=== PATIENT | female | born 1980 | race Caucasian/White ===

== ENCOUNTER 2016-11-02 11:07 | Emergency (ER) | payer SELFPAY ==
[~2016-11-02] VITALS: Ht 175.3 cm; Wt 120.0 kg
[~2016-11-02 11:07] MED LIST: KEFLEX; MELO7.5T12; ONDA4TAB7 PO; OXYC1TAB8 PO
[2016-11-02 11:10] VITALS: Ht 175.3 cm; Wt 120.0 kg
--- OUTSIDE RECORDS SUMMARY | 2016-11-02 11:11 | XMS REPORT ---
Author Author Carlene Lopez [facility] Address [address] [place] [address] Care Team Providers Care County Health Officer Name Role Phone Carlene Lopez Unavailable [phone] PROBLEMS Type Condition ICD9-CM Code WAW79-RK Code Onset Dates Condition Status SNOMED Code Assessment Other acute sinusitis J01.80 Jul, Active 21424178 Problem Anxiety state, unspecified 300.00 Active 936239831 Problem Major Depressive Disorder 311 Active 158539351 Problem Calculus of kidney 592.0 Active 34709481 Problem Pneumonia, organism unspecified 486 Active 091982838 Problem Depressive disorder, not elsewhere classified 311 Active 37823692 Problem Obesity, unspecified 278.00 Active 443246509 Problem Enlargement of lymph nodes 785.6 Active 25925036 Problem Unspecified myalgia and myositis 729.1 Active 189779499 Problem Unspecified disorder of the teeth and supporting structures 525.9 Active 569077764 Problem Abnormal weight gain 783.1 Active 614669351 Problem Unspecified vaginitis and vulvovaginitis 616.10 Active 446788885 Problem Pain in joint, hand 719.44 Active 710504744 Problem Unspecified vitamin D deficiency 268.9 Active 78448777 Problem Essential hypertension, benign 401.1 Active 0294890 Problem Essential (primary) hypertension I10 Active 27833101 Problem Other mixed anxiety disorders F41.3 Active Problem Abdominal pain, right lower quadrant 789.03 Active 172585795 Problem Health examination of defined subpopulation V70.5 Active 243994124 Problem Acute sinusitis, unspecified 461.9 Active 99021606 Problem 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 691409241 Problem Vitamin D deficiency, unspecified E55.9 Active 73934417 Problem Hypothyroidism, unspecified E03.9 Active 35465273 Problem Ulcer of esophagus without bleeding K22.10 Active 79991220 Problem Fatigue 780.79 Active 64173634 Problem Abdominal pain, unspecified site 789.00 Active 60517233 Problem Abdominal pain, left lower quadrant 789.04 Active 009283171 Problem Blood in stool 578.1 Active 566450436 Problem Acute bronchitis 466.0 Active 91664774 Problem Cough 786.2 Active 92246662 Problem 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
--- OUTSIDE RECORDS SUMMARY | 2016-11-02 11:11 | XMS REPORT ---
Author Author Elinor Collier Organization [employer] Address Unknown Phone Unavailable Care Team Providers Care Marketing Professor Name Role Phone Elinor Collier CP Unavailable Allergies No Known Allergies Problems Problem Type Condition ICD-9 Code Onset Dates Condition Status Problem Anxiety state, unspecified 300.00 Active Problem Major Depressive Disorder 311 Active Problem Unspecified disorder of the teeth and supporting structures 525.9 Active Problem Enlargement of lymph nodes 785.6 Active Problem Unspecified vaginitis and vulvovaginitis 616.10 Active Problem Pneumonia, organism unspecified 486 Active Problem Calculus of kidney 592.0 Active Problem Obesity, unspecified 278.00 Active Problem Depressive disorder, not elsewhere classified 311 Active Medications No Known Medications Vital Signs Date/Time: Aug 10, 2013 Weight 243 lbs Height 69 inches Blood Pressure Diastolic 103 mm Hg Blood Pressure Systolic 162 mm Hg Temperature 98.8 F Cardiac Monitoring Heart Rate 109 Beats per Minute Results No Known Results Summary Purpose [employer]Clinical[employer] Submission
--- OUTSIDE RECORDS SUMMARY | 2016-11-02 11:11 | XMS REPORT ---
Author Elinor Ochoa [facility] e[employer] Address Unknown Phone Unavailable Care Team Providers Care Training Generalist Name Role Phone Elinor Collier CP Unavailable Allergies, Adverse Reactions, Alerts Substance Reaction Event Type Sulfacet-R Info Not Available Drug Allergy Ciprofloxacin Info Not Available Drug Allergy Problems Problem Type Condition ICD-9 Code Onset Dates Condition Status Problem Enlargement of lymph nodes 785.6 Active Problem Unspecified vaginitis and vulvovaginitis 616.10 Active Problem Unspecified disorder of the teeth and supporting structures 525.9 Active Problem Fatigue 780.79 Active Problem Blood in stool 578.1 Active Problem Abdominal pain, unspecified site 789.00 Active Problem Health examination of defined subpopulation V70.5 Active Problem Acute sinusitis, unspecified 461.9 Active Problem Abdominal pain, left lower quadrant 789.04 Active Problem Abdominal pain, right lower quadrant 789.03 Active Assessment Fatigue 780.79 Active Assessment Abdominal pain, unspecified site 789.00 Active Assessment Blood in stool 578.1 Active Assessment Abdominal pain, left lower quadrant 789.04 Active Problem Calculus of kidney 592.0 Active Problem Pneumonia, organism unspecified 486 Active Problem Major Depressive Disorder 311 Active Problem Depressive disorder, not elsewhere classified 311 Active Problem Anxiety state, unspecified 300.00 Active Problem Obesity, unspecified 278.00 Active Medications Medication Code System Code Instructions Start Date End Date Status Dosage Percocet [facility] [address]-33 5-325 MG Orally every 6 hrs January 26, 2014 Active 1 tablet as needed [facility] [address]-00 875-125 MG Orally Twice a day January 25, 2014 February 08, 2014 Active 1 tablet Ibuprofen [facility] [address]-01 800 MG Orally every 8 hours Aug 25, 2013 Active 1 tablet as needed Aleve [facility] [address]-34 Active Unknown HydrOXYzine HCl [facility] [address]-23 25 MG Orally once or twice a day Active 1 tablet Cymbalta [facility] [address]-18 60 MG 30 MG Orally Once a day Jun 30, 2011 Active 1 capsule Procedures Procedure Coding System Code Date COMPLETE CBC W/AUTO DIFF WBC CPT-4 67492 January 26, 2014 URINALYSIS, AUTO, W/O SCOPE CPT-4 31283 January 26, 2014 COMPREHEN METABOLIC PANEL CPT-4 26728 January 26, 2014 FLYNN VAG, DNA, DIR PROBE CPT-4 15144 January 26, 2014 TRICHOMONAS VAGIN, DIR PROBE CPT-4 15443 January 26, 2014 Office Visit, Est Pt., Level 4 CPT-4 88025 January 26, 2014 N.GONORRHOEAE, DNA, DIR PROB CPT-4 37712 January 26, 2014 URINE TEST CPT-4 27165 January 26, 2014 ELLI, DNA, DIR PROBE CPT-4 75070 January 26, 2014 CHYLMD TRACH, DNA, DIR PROBE CPT-4 31679 January 26, 2014 Vital Signs Date/Time: January 26, 2014 Weight 246.6 lbs Height 69 in Blood Pressure Diastolic 85 mm Hg Blood Pressure Systolic 130 mm Hg Temperature 97.2 F Cardiac Monitoring Heart Rate 96 /min Results Urinalysis (UA) (GM) PRO(- ) Neg pH(- ) 6.5 BLO(- ) Small SG(- ) 1.025 KET(- ) Neg NIT(- ) Neg COLOR(- ) Yellow URO(- ) 0.2 CLARITY(- ) Clear GLU(- ) Neg MICHAEL(- ) Neg CRISTINO(- ) Neg Urine Test (GM) Summary Purpose eClinicalWorks Submission
--- OUTSIDE RECORDS SUMMARY | 2016-11-02 11:11 | XMS REPORT ---
Author Author Elinor Collier Organization [employer] Address Unknown Phone Unavailable Care Team Providers Care Space Officer Name Role Phone Elinor Collier CP Unavailable [...]
--- OUTSIDE RECORDS SUMMARY | 2016-11-02 11:11 | XMS REPORT ---
Author Author Elinor Collier Organization [employer] Address Unknown Phone Unavailable Care Team Providers Care Resident Engineer Name Role Phone Elinor Collier CP Unavailable Allergies No Known Allergies Problems Problem Type Condition ICD-9 Code Onset Dates Condition Status Problem Pneumonia, organism unspecified 486 Active Problem Obesity, unspecified 278.00 Active Problem Depressive disorder, not elsewhere classified 311 Active Problem Abdominal pain, right lower quadrant 789.03 Active Problem Health examination of defined subpopulation V70.5 Active Problem Abdominal pain, left lower quadrant 789.04 Active Problem Unspecified disorder of the teeth and supporting structures 525.9 Active Problem Enlargement of lymph nodes 785.6 Active Problem Acute sinusitis, unspecified 461.9 Active Problem Unspecified vaginitis and vulvovaginitis 616.10 Active Problem Major Depressive Disorder 311 Active Problem Anxiety state, unspecified 300.00 Active Problem Calculus of kidney 592.0 Active Medications No Known Medications Results No Known Results Summary Purpose [employer]ClinicalWorks Submission
--- OUTSIDE RECORDS SUMMARY | 2016-11-02 11:11 | XMS REPORT | Continuity of Care Document ---
Author Author [facility] Organization [facility] Address Unknown Phone Unavailable Care Team Providers Care Centerless Grinding Machine Adjuster Name Role Phone CARLO DONNELLY Primary Care Physician [phone] Insurance Providers Payer Name Policy Number Subscriber Name Relationship [employer] [id number] Yoanna Bautista 18 Self Problems Medical Problems Problem Onset Date Status Right flank pain Unknown Active Nausea Unknown Active Medications Medication Dose Route Sig Days/Qty Instructions Order Date Discontinued Date Status Oxycodone HCl/Acetaminophen 1-2 Tab PO Every 6 Hours PRN PAIN 20 Qty Active Ondansetron 4 Mg PO EVERY 6-8 HOURS 20 Qty 02/23/14 Active [Keflex] 02/23/14 Active Meloxicam 02/23/14 Active Social History Social History Problem Response Recorded Date/Time Smoking Status Never smoker 02/23/2014 7:16pm Hospital Discharge Instructions No hospital discharge instructions. Plan of Care No plan of care. Functional Status Query Response Date Recorded Physical Hygiene Self February 23, 2014 7:16pm Disabilities None February 23, 2014 7:16pm Devices Used None February 23, 2014 7:16pm Dressing Self February 23, 2014 7:16pm Ambulation Self February 23, 2014 7:16pm Diet Self February 23, 2014 7:16pm Mental Status Alert Oriented February 23, 2014 7:16pm Disabilities None February 23, 2014 7:16pm Devices Used None February 23, 2014 7:16pm Physical Hygiene Self February 23, 2014 7:16pm Dressing Self February 23, 2014 7:16pm Ambulation Self February 23, 2014 7:16pm Diet Self February 23, 2014 7:16pm Allergies, Adverse Reactions, Alerts Allergen Type Severity Reaction Status Last Updated Ciprofloxacin Allergy Unknown Active 02/23/14 SULFA Allergy Unknown Active 02/23/14 Immunizations No immunization records. Vital Signs Acute Vital Signs Vital Response Date/Time Temperature (Fahrenheit) 97.4 deg F (96.8 - 99.1) Temperature (Calculated Celsius) 36.82930 degrees C (36.0 - 37.3) Pulse Rate (adult) 78 bpm (60 - 100) Respiratory Rate 16 breaths/min (10 - 20) O2 Sat by Pulse Oximetry 99 % (90 - 100) Blood Pressure 128/75 mm Hg Height 5 ft 7 in Weight 198 lb Body Mass Index 31.0 kg/m^2 Results Test Source Date Result Interp. Ref. Range Comments Basophils # (Auto) February 23, 2014 7:21pm 0.1 T/MM3 N 0-0.2 Basophils (%) (Auto) February 23, 2014 7:21pm 1.0 % N 0-2 Eosinophils # (Auto) February 23, 2014 7:21pm 0.2 T/MM3 N 0-0.5 Eosinophils (%) (Auto) February 23, 2014 7:21pm 3.9 % N 0-4 Hematocrit February 23, 2014 7:21pm 39.4 % N 36-46 Hemoglobin February 23, 2014 7:21pm 13.1 GM/DL N 12-16 Lymphocytes # (Auto) February 23, 2014 7:21pm 1.5 T/MM3 N 1-4.8 Lymphocytes (%) (Auto) February 23, 2014 7:21pm 29.4 % N 23-45 Mean Corpuscular Hemoglobin February 23, 2014 7:21pm 29.5 UUG N 26-34 Mean Corpuscular Hemoglobin Concent February 23, 2014 7:21pm 33.2 GM/DL N 31 -37 Mean Corpuscular Volume February 23, 2014 7:21pm 88.7 UM3 N 80-100 Mean Platelet Volume February 23, 2014 7:21pm 10.8 UM3 N 9.4-12.4 Monocytes # (Auto) February 23, 2014 7:21pm 0.7 T/MM3 N 0-0.8 Monocytes (%) (Auto) February 23, 2014 7:21pm 13.5 % H 0-9.0 Neutrophils # (Auto) February 23, 2014 7:21pm 2.7 T/MM3 N 1.8-7.7 Neutrophils (%) (Auto) February 23, 2014 7:21pm 52.2 % N 33-66 Platelet Count February 23, 2014 7:21pm 296 T/MM3 N 130-400 RDW Standard Deviation February 23, 2014 7:21pm 41.4 FL N 36.9-50.2 Red Blood Count February 23, 2014 7:21pm 4.44 M/MM3 N 4.00-5.20 Urine Bilirubin February 23, 2014 7:40pm Negative - Has specimen been collected/obtained? Y Urine Blood February 23, 2014 7:40pm Negative - Has specimen been collected/obtained? Y Urine Collection Type February 23, 2014 7:40pm Voided-not cc-midstr - Has specimen been collected/obtained? Y Urine Color February 23, 2014 7:40pm Dk yellow - Has specimen been collected/obtained? Y Urine Glucose (UA) February 23, 2014 7:40pm Negative - Has specimen been collected/obtained? Y Urine Ketones February 23, 2014 7:40pm Trace H - Has specimen been collected/obtained? Y Urine Leukocyte Esterase February 23, 2014 7:40pm Negative - Has specimen been collected/obtained? Y Urine Nitrite February 23, 2014 7:40pm Negative - Has specimen been collected/obtained? Y Urine Protein February 23, 2014 7:40pm Negative - Has specimen been collected/obtained? Y Urine Specific [place] February 23, 2014 7:40pm >=1.030 H - Has specimen been collected/obtained? Y Urine Turbidity February 23, 2014 7:40pm Clear - Has specimen been collected/obtained? Y Urine Urobilinogen February 23, 2014 7:40pm 1.0 EU/DL - Has specimen been collected/obtained? Y Urine pH February 23, 2014 7:40pm 6.0 - Has specimen been collected/ obtained? Y White Blood Count February 23, 2014 7:21pm 5.1 T/MM3 N 4.5-11.0 Urinalysis Comment February 23, 2014 7:40pm Microscopic not ind. - Has specimen been collected/obtained? Y Immature Granulocyte # (Auto) February 23, 2014 7:21pm 0.00 T/MM3 N 0.00- 0.03 Immature Granulocyte % (Auto) February 23, 2014 7:21pm 0.0 % N 0.0-0.5 Procedures No known history of procedures. Encounters Encounter Location Date/Time Departed Emergency Room [facility] 02/23/14 5:44pm Recent Diagnosis
--- OUTSIDE RECORDS SUMMARY | 2016-11-02 11:12 | XMS REPORT ---
Author Elinor Ochoa Organization [employer] Address Unknown Phone Unavailable Care Team Providers Care Cosmetic Maker Name Role Phone Elinor Collier CP Unavailable [...] pain, right lower quadrant 789.03 Active Problem Calculus of kidney 592.0 Active Problem Pneumonia, organism unspecified 486 Active Problem Major Depressive Disorder 311 Active Problem Depressive disorder, not elsewhere classified 311 Active Problem Anxiety state, unspecified 300.00 Active Problem Obesity, unspecified 278.00 Active Medications No Known Medications Results No Known Results Summary Purpose eClinicalWorks Submission
--- OUTSIDE RECORDS SUMMARY | 2016-11-02 11:12 | XMS REPORT ---
Author Author Elinor Collier Organization [employer] Address Unknown Phone Unavailable Care Team Providers Care Patch Press Operator Name Role Phone Elinor Collier CP Unavailable [...]
--- OUTSIDE RECORDS SUMMARY | 2016-11-02 11:12 | XMS REPORT ---
Author Author Elinor Collier Organization [employer] Address Unknown Phone Unavailable Care Team Providers Care Brilliandeer Looper Name Role Phone Elinor Collier CP Unavailable Allergies, Adverse Reactions, Alerts Substance Reaction Event Type Sulfacet-R Info Not Available Drug Allergy Ciprofloxacin Info Not Available Drug Allergy Problems Problem Type Condition ICD-9 Code Onset Dates Condition Status Assessment Enlargement of lymph nodes 785.6 Active Problem Major Depressive Disorder 311 Active Assessment Unspecified disorder of the teeth and supporting structures 525.9 Active Assessment Obesity, unspecified 278.00 Active Assessment Major Depressive Disorder 311 Active Problem Enlargement of lymph nodes 785.6 Active Problem Obesity, unspecified 278.00 Active Problem Unspecified disorder of the teeth and supporting structures 525.9 Active Problem Calculus of kidney 592.0 Active Problem Anxiety state, unspecified 300.00 Active Problem Depressive disorder, not elsewhere classified 311 Active Problem Pneumonia, organism unspecified 486 Active Medications Medication Code System Code Instructions Start Date End Date Status Dosage Phentermine HCl [facility] [address]-57 37.5 MG Orally Once a day March 01, 2012 Mar 31, 2012 Active 1 tablet 1 hour prior to breakfast Ibuprofen [facility] [address]-97 800 MG Orally Three times a day May 16, 2013 Jun 15, 2013 Active 1 tablet as needed Amoxicillin [facility] [address]-49 500 MG Orally every 8 hrs May 16, 2013 May 26, 2013 Active [address] [facility] [address]-70 60 MG Orally Once a day Jun 30, 2011 Active 1 capsule Procedures Procedure Coding System Code Date Office Visit, Est Pt., Level 3 CPT-4 21660 May 16, 2013 Vital Signs Date/Time: May 16, 2013 Weight 259.6 lbs Height 69 inches Blood Pressure Diastolic 84 mm Hg Blood Pressure Systolic 121 mm Hg Temperature 98.7 F Results No Known Results Summary Purpose [employer]ClinicalWorks Submission
--- OUTSIDE RECORDS SUMMARY | 2016-11-02 11:12 | XMS REPORT ---
Author Author Naa Lopez Organization [employer] Address Unknown Phone Unavailable Care Team Providers Care Production Maintenance Mechanic Name Role Phone Naa Lopez CP Unavailable Allergies No Known Allergies Problems Problem Type Condition ICD-9 Code Onset Dates Condition Status Assessment Unspecified vitamin D deficiency 268.9 Active Assessment Other abnormal glucose 790.29 Active Problem Blood in stool 578.1 Active Problem Major Depressive Disorder 311 Active Problem Fatigue 780.79 Active Problem Anxiety state, unspecified 300.00 Active Problem Abdominal pain, unspecified site 789.00 Active Problem Other acne 706.1 Active Problem Congenital medullary sponge kidney 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.17 Active Problem Essential hypertension, benign 401.1 Active Problem Pain in joint, hand 719.44 Active Problem Depressive disorder, not elsewhere classified 311 Active Problem Pneumonia, organism unspecified 486 Active Problem Unspecified vitamin D deficiency 268.9 Active Problem Calculus of kidney 592.0 Active Problem Cough 786.2 Active Problem Acute bronchitis 466.0 Active Problem Abnormal weight gain 783.1 Active Problem Unspecified myalgia and myositis 729.1 Active Problem Unspecified disorder of the teeth and supporting structures 525.9 Active Problem Unspecified vaginitis and vulvovaginitis 616.10 Active Problem Obesity, unspecified 278.00 Active Problem Enlargement of lymph nodes 785.6 Active Problem Abdominal pain, right lower quadrant 789.03 Active Problem Abdominal pain, left lower quadrant 789.04 Active Problem Acute sinusitis, unspecified 461.9 Active Problem Health examination of defined subpopulation V70.5 Active Medications Medication Code System Code Instructions Start Date End Date Status Dosage Vitamin D (Ergocalciferol) [facility] [address]-31 [address]23 UNIT Orally once weekly January 29, 2015 Apr 29, 2015 1 capsule Results No Known Results Summary Purpose eClinicalWorks Submission
--- OUTSIDE RECORDS SUMMARY | 2016-11-02 11:12 | XMS REPORT ---
Author Elinor Ochoa [facility] eClinical[employer] Address Unknown Phone Unavailable Care Team Providers Care Big 6 Dealer Name Role Phone Elinor Collier CP Unavailable [...] Problem Unspecified vaginitis and vulvovaginitis 616.10 Active Assessment Abdominal pain, left lower quadrant 789.04 Active Problem Major Depressive Disorder 311 Active Problem Anxiety state, unspecified 300.00 Active Assessment Abdominal pain, right lower quadrant 789.03 Active Problem Calculus of kidney 592.0 Active Medications Medication Code System Code Instructions Start Date End Date Status Dosage [facility] [address]-91 875-125 MG Orally Twice a day January 25, 2014 February 08, 2014 Active 1 tablet Cymbalta [facility] [address]-74 60 MG 30 MG Orally Once a day Jun 30, 2011 Active 1 capsule [facility] [address]-09 25 MG Orally once or twice a day Active 1 tablet Aleve [facility] [address]-62 Active Unknown Ibuprofen [facility] [address]-38 800 MG Orally every 8 hours Aug 25, 2013 Active 1 tablet as needed Procedures Procedure Coding System Code Date Office Visit, Est Pt., Level 3 CPT-4 72643 January 25, 2014 Vital Signs Date/Time: January 25, 2014 Weight 247.0 lbs Height 69 in Blood Pressure Diastolic 88 mm Hg Blood Pressure Systolic 122 mm Hg Temperature 97.9 F Cardiac Monitoring Heart Rate 102 /min Results No Known Results Summary Purpose eClinicalWorks Submission
--- OUTSIDE RECORDS SUMMARY | 2016-11-02 11:12 | XMS REPORT ---
Author Author Elinor Collier Organization [employer] Address Unknown Phone Unavailable Care Team Providers Care Financial Sales Consultant Name Role Phone Elinor Collier CP Unavailable [...]
--- OUTSIDE RECORDS SUMMARY | 2016-11-02 11:12 | XMS REPORT ---
Author Author Elinor Collier Organization [employer] Address Unknown Phone Unavailable Care Team Providers Care Silhouette Artist Name Role Phone Elinor Collier CP Unavailable Allergies, Adverse Reactions, Alerts Substance Reaction Event Type Sulfacet-R Info Not Available Drug Allergy Ciprofloxacin Info Not Available Drug Allergy Problems Problem Type Condition ICD-9 Code Onset Dates Condition Status Assessment Unspecified disorder of the teeth and supporting structures 525.9 Active Problem Anxiety state, unspecified 300.00 Active [...] disorder, not elsewhere classified 311 Active Medications Medication Code System Code Instructions Start Date End Date Status Dosage HydrOXYzine HCl [facility] [address]-22 25 MG Orally once or twice a day Active 1 tablet Ibuprofen [facility] [address]-43 800 MG Orally Three times a day Aug 25, 2013 Active 1 tablet as needed Amoxicillin [facility] [address]-87 500 MG Orally every 8 hrs Aug 25, 2013 Sep 14, 2013 Active 1 tablet Cymbalta [facility] [address]-59 60 MG + 30 MG Orally Once a day Jun 30, 2011 Active 1 capsule Aleve [facility] [address]-58 Active Unknown Procedures Procedure Coding System Code Date Office Visit, Est Pt., Level 3 CPT-4 17657 Aug 25, 2013 Vital Signs Date/Time: Aug 25, 2013 Weight 242 lbs Height 69 inches Blood Pressure Diastolic 87 mm Hg Blood Pressure Systolic 131 mm Hg Temperature 98.4 F Cardiac Monitoring Heart Rate 108 Beats per Minute Results No Known Results Summary Purpose eClinicalWorks Submission
--- OUTSIDE RECORDS SUMMARY | 2016-11-02 11:12 | XMS REPORT ---
Author Author Carlene Lopez [facility] Address [address] [place] [address] Care Team Providers Care Pie Bottomer Name Role Phone Carlene Lopez Unavailable [phone] PROBLEMS Type Condition ICD9-CM Code SQO49-ND Code Onset Dates Condition Status SNOMED Code Assessment Encounter for general adult medical examination with abnormal findings Z00.01 Jul, Active 67642963 Assessment Encounter for screening for respiratory tuberculosis Z11.1 Jul, Active 802098054 Problem Anxiety state, unspecified 300.00 Active 050334458 Problem Major Depressive Disorder 311 Active 272182563 Problem Calculus of kidney 592.0 Active 83688451 Problem Pneumonia, organism unspecified 486 Active 356117531 Problem Depressive disorder, not elsewhere classified 311 Active 70125078 Problem Obesity, unspecified 278.00 Active 352451687 Problem Enlargement of lymph nodes 785.6 Active 16838593 Problem Unspecified myalgia and myositis 729.1 Active 128535829 Problem Unspecified disorder of the teeth and supporting structures 525.9 Active 125310146 Problem Abnormal weight gain 783.1 Active 782794808 Problem Unspecified vaginitis and vulvovaginitis 616.10 Active 187151209 Problem Pain in joint, hand 719.44 Active 826870358 Problem Unspecified vitamin D deficiency 268.9 Active 30954626 Problem Essential hypertension, benign 401.1 Active 3159380 Problem Essential (primary) hypertension I10 Active 42826042 Problem Other mixed anxiety disorders F41.3 Active Problem Abdominal pain, right lower quadrant 789.03 Active 100027959 Problem Health examination of defined subpopulation V70.5 Active 273569560 Problem Acute sinusitis, unspecified 461.9 Active 04075130 Problem 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 358016093 Problem Vitamin D deficiency, unspecified E55.9 Active 51419597 Problem Hypothyroidism, unspecified E03.9 Active 81689339 Problem Ulcer of esophagus without bleeding K22.10 Active 04665207 Assessment Acute nasopharyngitis [common cold] J00 Jul, Active 38559789 Problem Fatigue 780.79 Active 58095960 Assessment Essential (primary) hypertension I10 Jul, Active 47635325 Problem Abdominal pain, unspecified site 789.00 Active 99022777 Problem Abdominal pain, left lower quadrant 789.04 Active 724188166 Assessment Impaired fasting glucose R73.01 Jul, Active 218163625 Problem Blood in stool 578.1 Active 432626524 Problem Acute bronchitis 466.0 Active 29055053 Problem Cough 786.2 Active 41439302 Problem Congenital medullary sponge 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.17 Active 355629811 Problem Other acne 706.1 Active 88668800 ALLERGIES Substance Reaction Event Type Date Status Sulfacet-R Unknown Drug Allergy Jul, Active Ciprofloxacin Unknown Drug Allergy Jul, Active SOCIAL HISTORY No smoking Hx information available PLAN OF CARE VITAL SIGNS Height 69 in 2016-07-18 Weight 261.6 lbs 2016-07-18 BMI 38.63 kg/m2 2016-07-18 Heart Rate 92 /min 2016-07-18 Temperature 97.8 degrees Fahrenheit 2016-07-18 Blood pressure systolic 134 mm Hg 2016-07-18 Blood pressure diastolic 83 mm Hg 2016-07-18 MEDICATIONS Medication Instructions Dosage Frequency Start Date End Date Duration Status Levothyroxine Sodium 100 MCG Orally as directed 1/2 tab once daily x2 weeks then 1 tab daily thereafter Jul, 90 days Active Womens Daily Formula Active Atenolol 25 MG Orally Once a day 1 tablet 24h Jan, 90 days Active Cymbalta 30 MG Orally Once a day 3 capsule 24h Jun, Active RESULTS No Results PROCEDURES Procedure Date Ordered Related Diagnosis Body Site Office Visit, Est Pt., Level 3 Jul 18, 2016 TB INTRADERMAL TEST Jul 18, 2016 IMMUNIZATIONS Vaccine Route Administration Date Status Tuberculin ([place]) SC Subcutaneous Jul 18, 2016 Administered
--- OUTSIDE RECORDS SUMMARY | 2016-11-02 11:12 | XMS REPORT ---
Author Author Naa Lopez Organization [employer] Address Unknown Phone Unavailable Care Team Providers Care Teamsite Developer Name Role Phone Naa Lopez CP Unavailable Allergies No Known Allergies Problems Problem Type Condition Code Onset Dates Condition Status Problem Blood in stool 578.1 Active Problem [...] examination of defined subpopulation V70.5 Active Medications No Known Medications Results No Known Results Summary Purpose [employer] Submission
--- OUTSIDE RECORDS SUMMARY | 2016-11-02 11:12 | XMS REPORT ---
Author Author Elinor Collier Organization [employer] Address Unknown Phone Unavailable Care Team Providers Care Project Development Director Name Role Phone Elinor Collier CP Unavailable [...]
--- OUTSIDE RECORDS SUMMARY | 2016-11-02 11:12 | XMS REPORT ---
Author Author Naa Lopez [facility] [employer] Address Unknown Phone Unavailable Care Team Providers Care Soa Engineer Name Role Phone Naa Lopez CP Unavailable Allergies, Adverse Reactions, Alerts Substance Reaction Event Type Sulfacet-R Info Not Available Drug Allergy Ciprofloxacin Info Not Available Drug Allergy Problems Problem Type Condition ICD-9 Code Onset Dates Condition Status Assessment Unspecified myalgia and myositis 729.1 Active Assessment Abnormal weight gain 783.1 Active Assessment Pain in joint, hand 719.44 Active Assessment Anxiety state, unspecified 300.00 Active Problem Abdominal pain, left lower quadrant 789.04 Active Assessment Essential hypertension, benign 401.1 Active Problem Blood in stool 578.1 Active Problem Major Depressive Disorder 311 Active Problem Fatigue 780.79 Active Problem Congenital medullary sponge kidney 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.17 Active Problem Abdominal pain, unspecified site 789.00 Active Problem Pain in joint, hand 719.44 Active Problem Abnormal weight gain 783.1 Active Problem Pneumonia, organism unspecified 486 Active Problem Calculus of kidney 592.0 Active Problem Essential hypertension, benign 401.1 Active Problem Anxiety state, unspecified 300.00 Active Problem Acute bronchitis 466.0 Active Problem Other acne 706.1 Active Problem Unspecified myalgia and myositis 729.1 Active Problem Cough 786.2 Active Problem Enlargement of lymph nodes 785.6 Active Problem Unspecified disorder of the teeth and supporting structures 525.9 Active Problem Depressive disorder, not elsewhere classified 311 Active Problem Obesity, unspecified 278.00 Active Problem Health examination of defined subpopulation V70.5 Active Problem Abdominal pain, right lower quadrant 789.03 Active Problem Unspecified vaginitis and vulvovaginitis 616.10 Active Problem Acute sinusitis, unspecified 461.9 Active Medications Medication Code System Code Instructions Start Date End Date Status Dosage Cymbalta [facility] [address]-56 30 MG Orally Once a day Jun 30, 2011 3 capsule Atenolol [facility] [address]-30 25 MG Orally qhs January 17, 2015 1 tablet Procedures Procedure Coding System Code Date Office Visit, Est Pt., Level 3 CPT-4 68689 January 17, 2015 Vital Signs Date/Time: January 17, 2015 BMI 38.63 Index Weight 261.6 lbs Height 69 in Blood Pressure Diastolic 84 mm Hg Blood Pressure Systolic 134 mm Hg Temperature 97.3 F Cardiac Monitoring Heart Rate 83 /min Results No Known Results Summary Purpose [employer] Submission
--- OUTSIDE RECORDS SUMMARY | 2016-11-02 11:12 | XMS REPORT ---
Author Author Naa Lopez [facility] [employer] Address Unknown Phone Unavailable Care Team Providers Care Induction Heating Equipment Setter Name Role Phone Naa Lopez CP Unavailable Allergies, Adverse Reactions, Alerts Substance Reaction Event Type Sulfacet-R Info Not Available Drug Allergy Ciprofloxacin Info Not Available Drug Allergy Problems Problem Type Condition ICD-9 Code Onset Dates Condition Status Problem Health examination of defined subpopulation V70.5 Active Problem Abdominal pain, left lower quadrant 789.04 Active Problem Abdominal pain, right lower quadrant 789.03 Active Problem Acute bronchitis 466.0 Active Assessment Cough 786.2 Active Problem Other acne 706.1 Active Problem Cough 786.2 Active Problem Fatigue 780.79 Active Problem Blood in stool 578.1 Active Problem Congenital medullary sponge 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.17 Active Problem Abdominal pain, unspecified site 789.00 Active Problem Calculus of kidney 592.0 Active Problem Pneumonia, organism unspecified 486 Active Problem Major Depressive Disorder 311 Active Problem Anxiety state, unspecified 300.00 Active Problem Enlargement of lymph nodes 785.6 Active Problem Unspecified disorder of the teeth and supporting structures 525.9 Active Problem Depressive disorder, not elsewhere classified 311 Active Problem Unspecified vaginitis and vulvovaginitis 616.10 Active Problem Obesity, unspecified 278.00 Active Problem Acute sinusitis, unspecified 461.9 Active Medications Medication Code System Code Instructions Start Date End Date Status Dosage Azithromycin [facility] [address]-79 250 MG Orally Once a day Jul 05, 2014 Jul 10, 2014 Active 2 tablet on the first day, then 1 tablet daily for 4 days HydrOXYzine HCl [facility] [address]-26 25 MG Orally once or twice a day Active 1 tablet Ibuprofen [facility] [address]-67 800 MG Orally every 8 hours Aug 25, 2013 November 02, 2014 Active 1 tablet as needed Percocet [facility] [address]-35 5-325 MG Orally every 6 hrs January 26, 2014 Active 1 tablet as needed Aleve [facility] [address]-17 Active not defined Cymbalta [facility] [address]-95 60 MG 30 MG Orally Once a day Jun 30, 2011 Active 1 capsule Tretinoin [facility] [address]-19 0.1 % Externally Once a day Mar 23, 2014 Active 1 application to affected area in the evening to face Doxycycline Hyclate [facility] [address]-58 100 MG Orally Once a day Mar 23, 2014 October 19, 2014 Active 1 tablet Procedures Procedure Coding System Code Date Office Visit, Est Pt., Level 3 CPT-4 76120 Jul 05, 2014 Vital Signs Date/Time: Jul 05, 2014 BMI 36.62 Index Weight 248.0 lbs Height 69 in Blood Pressure Diastolic 78 mm Hg Blood Pressure Systolic 132 mm Hg Temperature 98.6 F Cardiac Monitoring Heart Rate 105 /min Results No Known Results Summary Purpose [employer] Submission
--- OUTSIDE RECORDS SUMMARY | 2016-11-02 11:12 | XMS REPORT ---
Author Author Elinor Collier [facility] [employer] Address Unknown Phone Unavailable Care Team Providers Care Telephone Answering Service Operator Name Role Phone Elinor Collier CP Unavailable Allergies No Known Allergies Problems Problem Type Condition ICD-9 Code Onset Dates Condition Status Problem Unspecified disorder of the teeth and supporting structures 525.9 Active Problem Acute sinusitis, unspecified 461.9 Active Problem Unspecified vaginitis and vulvovaginitis 616.10 Active Problem Abdominal pain, unspecified site 789.00 Active Problem Fatigue 780.79 Active Problem Congenital medullary sponge 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.17 Active Problem Abdominal pain, right lower quadrant 789.03 Active Problem Health examination of defined subpopulation V70.5 Active Problem Blood in stool 578.1 Active Problem Abdominal pain, left lower quadrant 789.04 Active Problem Major Depressive Disorder 311 Active Problem Pneumonia, organism unspecified 486 Active Problem Depressive disorder, not elsewhere classified 311 Active Problem Anxiety state, unspecified 300.00 Active Problem Obesity, unspecified 278.00 Active Problem Calculus of kidney 592.0 Active Problem Enlargement of lymph nodes 785.6 Active Medications No Known Medications Results No Known Results Summary Purpose [employer] Submission
--- OUTSIDE RECORDS SUMMARY | 2016-11-02 11:12 | XMS REPORT ---
Author Author Elinor Collier [facility] [employer] Address Unknown Phone Unavailable Care Team Providers Care Client Renewal Specialist Name Role Phone Elinor Collier CP Unavailable [...]
--- OUTSIDE RECORDS SUMMARY | 2016-11-02 11:13 | XMS REPORT ---
Author Elinor Ochoa Organization [employer] Address Unknown Phone Unavailable Care Team Providers Care Timber Appraiser Name Role Phone Elinor Collier CP Unavailable [...]
--- OUTSIDE RECORDS SUMMARY | 2016-11-02 11:13 | XMS REPORT | Continuity of Care Document ---
Author Author [facility] Organization [facility] Address Unknown Phone Unavailable Allergies Active Description Code Type Severity Reaction Onset Reported/Identified Relationship to Patient Clinical Status Yes Cipro Drug Allergy Urticaria (hives) 05/28/2011 Yes Sulfa (Sulfonamide Antibiotics Drug Allergy Urticaria ( hives) 05/28/2011 Yes ciprofloxacin HCl ciprofloxacin HCl Drug Allergy Unknown N/ A 04/30/2012 Yes No Known Food Allergies Food Allergy 06/03/2012 Yes Cipro - Oral Medication MED N/A N/A 06/03/2013 Yes Sulfa Antibiotics - CLASS Class MED N/A N/A 06/03/2013 Yes ciprofloxacin ciprofloxacin Drug Allergy Unknown HIVES 06/16/2015 Yes ciprofloxacin HCl ciprofloxacin HCl Drug Allergy Unknown HIVES 06/16/2015 Yes Sulfa (Sulfonamide Antibiotics) Sulfa (Sulfonamide Antibiotics) Drug Allergy Unknown HIVES Yes ciprofloxacin ciprofloxacin Drug Allergy Unknown HIVES 06/16/2015 Yes ciprofloxacin HCl ciprofloxacin HCl Drug Allergy Unknown HIVES 06/16/2015 Yes Sulfa (Sulfonamide Antibiotics) Sulfa (Sulfonamide Antibiotics) Drug Allergy Unknown HIVES Medications Medication Packaging Start Date Stop Date Route Dosage Sig ClonazePAM 0.5 MG Oral Tablet 03/03/2016 04/03/2016 ORAL 0.5MG Take one tablet AM and one tablet PM and 1/2 to 1 tablet QD PRN for panic ClonazePAM 0.5 MG Oral Tablet 04/16/2016 05/17/2016 ORAL 0.5MG TAKE 1 TABLET BY MOUTH EVERY MORNING TAKE 1 TABLET BY MOUTH EVERY EVENING AND 1/2 TO 1 TABLET EVERY DAY NEEDED FOR PANIC ClonazePAM 0.5 MG Oral Tablet 07/24/2016 08/01/2016 ORAL 0.5MG TAKE 1 TABLET TWICE DAILY NEEDED. DULoxetine HCl 30 MG Oral Capsule Delayed Release Particles 09/03/2016 10/04/2016 ORAL 30MG TAKE 1 CAPSULE DAILY IN THE MORNING. ClonazePAM 0.5 MG Oral Tablet 09/03/2016 10/04/2016 ORAL 0.5MG TAKE 1 TABLET BID PRN ClonazePAM 0.5 MG Oral Tablet UD 10/21/2016 11/21/2016 ORAL 0.5MG TAKE ONE TABLET BY MOUTH DAILY NEEDED Problems Date Dx Coded Attending Type Code Diagnosis Diagnosed By 04/30/2012 Adolph Goel MD Final 788.0 RENAL COLIC 04/30/2012 Adolph Goel MD Admitting 789.09 ABDOMINAL PAIN-SITE NEC 05/26/2012 Marita Brown MD Final 483.8 PNEUMONIA D/T ORG NEC 05/26/2012 Marita Brown MD 786.05 SHORTNESS OF BREATH 05/26/2012 Marita Brown MD Admitting 786.2 COUGH 05/29/2012 Colt Farias MD Final 486 PNEUMONIA ORGANISM NOS 05/29/2012 Colt Farias MD Admitting 786.2 COUGH 06/03/2012 Jarrett Vanegas DO Final 311 DEPRESSIVE DISORDER NEC 06/03/2012 Jarrett Vanegas DO Final 486 PNEUMONIA ORGANISM NOS 06/03/2012 Jarrett Vanegas DO Admitting 786.05 SHORTNESS OF BREATH 05/03/2015 F F31.81 Bipolar II disorder Jenni Gay 11/28/2015 F F33.1 Major depressive disorder, recurrent, moderate RadiantRochelle 11/28/2015 F F31.81 Bipolar II disorder Rochelle Jarvis 11/28/2015 F F41.0 Panic disorder [episodic paroxysmal anxiety] without agoraphobia Rochelle Jarvis 11/28/2015 F F31.81 Bipolar II disorder 11/28/2015 F F41.0 Panic disorder [episodic paroxysmal anxiety] without agoraphobia 11/28/2015 F F33.1 Major depressive disorder, recurrent, moderate 12/27/2015 F F33.1 Major depressive disorder, recurrent, moderate Rochelle Jarvis 12/27/2015 F F31.81 Bipolar II disorder Rochelle Jarvis 12/27/2015 F F41.0 Panic disorder [episodic paroxysmal anxiety] without agoraphobia Rochelle Jarvis 12/27/2015 F F31.81 Bipolar II disorder 12/27/2015 F F41.0 Panic disorder [episodic paroxysmal anxiety] without agoraphobia 12/27/2015 F F33.1 Major depressive disorder, recurrent, moderate 02/28/2016 F F31.81 Bipolar II disorder Chevalier, Sandra 02/28/2016 F F41.0 Panic disorder [episodic paroxysmal anxiety] without agoraphobia Chevalier, Sandra 02/28/2016 F F33.1 Major depressive disorder, recurrent, moderate Chevalier, Sandra 02/28/2016 F F31.81 Bipolar II disorder Chevalier, Sandra 02/28/2016 F F41.0 Panic disorder [episodic paroxysmal anxiety] without agoraphobia Chevalier, Sandra 02/28/2016 F F33.1 Major depressive disorder, recurrent, moderate Chevalier, Sandra 02/28/2016 F F33.1 Major depressive disorder, recurrent, moderate Deidra Jenni A 02/28/2016 F F41.0 Panic disorder [episodic paroxysmal anxiety] without agoraphobia Jenni Gay A 03/03/2016 F F33.1 Major depressive disorder, recurrent, moderate Guerra, Maria Del Rosario 03/03/2016 F F31.81 Bipolar II disorder Guerra, Maria Del Rosario 03/03/2016 F F41.0 Panic disorder [episodic paroxysmal anxiety] without agoraphobia Guerra, Maria Del Rosario 03/03/2016 F F31.81 Bipolar II disorder 03/03/2016 F F41.0 Panic disorder [episodic paroxysmal anxiety] without agoraphobia 03/03/2016 F F31.81 Bipolar II disorder Chevalier, Sandra 03/03/2016 F F41.0 Panic disorder [episodic paroxysmal anxiety] without agoraphobia Chevalier, Sandra 03/03/2016 F F33.1 Major depressive disorder, recurrent, moderate 03/03/2016 F F33.1 Major depressive disorder, recurrent, moderate Chevalier, Sandra 03/03/2016 F F31.81 Bipolar II disorder Chevalier, Sandra 03/03/2016 F F41.0 Panic disorder [episodic paroxysmal anxiety] without agoraphobia Chevalier, Sandra 03/03/2016 F F33.1 Major depressive disorder, recurrent, moderate Chevalier, Sandra 03/05/2016 F F31.81 Bipolar II disorder 03/05/2016 F F41.0 Panic disorder [episodic paroxysmal anxiety] without agoraphobia 03/05/2016 F F33.1 Major depressive disorder, recurrent, moderate [place]ornes, [place] 03/05/2016 F F31.81 [facility] [place] 03/05/2016 F F41.0 Panic disorder [episodic paroxysmal anxiety] without agoraphobia [facility] [place] 03/06/2016 F F33.1 Major depressive disorder, recurrent, moderate 03/06/2016 F F33.1 Major depressive disorder, recurrent, moderate Rosangela Gaye A 03/06/2016 F F41.0 Panic disorder [episodic paroxysmal anxiety] without agoraphobia Rosangela Gaye A 03/13/2016 F F31.81 Bipolar II disorder 03/13/2016 F F41.0 Panic disorder [episodic paroxysmal anxiety] without agoraphobia 03/13/2016 F F33.1 Major depressive disorder, recurrent, moderate [place]ornes, [place] 03/13/2016 F F31.81 Bipolar II disorder [place] 03/13/2016 F F41.0 Panic disorder [episodic paroxysmal anxiety] without agoraphobia [facility] [place] 03/14/2016 F F33.1 Major depressive disorder, recurrent, moderate 03/20/2016 F F33.1 Major depressive disorder, recurrent, moderate Cristina Bravo A 03/20/2016 F F31.81 Bipolar II disorder Lawrence Cristina A 03/20/2016 F F41.0 Panic disorder [episodic paroxysmal anxiety] without agoraphobia Lawrence Cristina A 03/20/2016 F F31.81 Bipolar II disorder 03/20/2016 F F41.0 Panic disorder [episodic paroxysmal anxiety] without agoraphobia 03/20/2016 F F33.1 Major depressive disorder, recurrent, moderate 04/04/2016 F F31.81 Bipolar II disorder 04/04/2016 F F41.0 Panic disorder [episodic paroxysmal anxiety] without agoraphobia 04/08/2016 F F33.1 Major depressive disorder, recurrent, moderate Zornes, [place] 04/08/2016 F F31.81 Bipolar II disorder [facility] [place] 04/08/2016 F F41.0 Panic disorder [episodic paroxysmal anxiety] without ag[place]aphobia [place] 04/08/2016 F F33.1 Major depressive disorder, recurrent, moderate 04/09/2016 F F33.1 Major depressive disorder, recurrent, moderate Zornes, Jessica 04/09/2016 F F31.81 Bipolar II disorder Zorvaleriano, [place] 04/09/2016 F F41.0 Panic disorder [episodic paroxysmal anxiety] without agoraphobia Socrates, Jessica 05/19/2016 F F31.81 Bipolar II disorder Deidra Jenni A 05/19/2016 F F33.1 Major depressive disorder, recurrent, moderate Guerra, Maria Del Rosario 05/19/2016 F F31.81 Bipolar II disorder Guerra, Maria Del Rosario 05/19/2016 F F41.0 Panic disorder [episodic paroxysmal anxiety] without agoraphobia Guerra, Maria Del Rosario 05/19/2016 F F31.81 Bipolar II disorder Psy, Batch 05/19/2016 F F41.0 Panic disorder [episodic paroxysmal anxiety] without agoraphobia Psy, Batch 05/19/2016 F F33.1 Major depressive disorder, recurrent, moderate Deidra Jenni A 05/19/2016 F F41.0 Panic disorder [episodic paroxysmal anxiety] without agoraphobia Jenni Gay A 05/19/2016 F F33.1 Major depressive disorder, recurrent, moderate Psy, Batch 09/03/2016 F E03.9 Hypothyroidism, unspecified Jenni Ochoa A 09/03/2016 F F31.81 Bipolar II disorder Jenni Gay A 09/03/2016 F F33.1 Major depressive disorder, recurrent, moderate Cristina Bravo A 09/03/2016 F F31.81 Bipolar II disorder Cristina Bravo A 09/03/2016 F F41.0 Panic disorder [episodic paroxysmal anxiety] without agoraphobia Cristina Bravo A 09/03/2016 F F31.81 Bipolar II disorder Psy, Batch 09/03/2016 F F41.0 Panic disorder [episodic paroxysmal anxiety] without agoraphobia Psy, Batch 09/03/2016 F F33.1 Major depressive disorder, recurrent, moderate Jenni Gay A 09/03/2016 F F41.0 Panic disorder [episodic paroxysmal anxiety] without agoraphobia Jenni Gay 09/03/2016 F F31.81 Bipolar II disorder Jenni Gay 09/03/2016 F F33.1 Major depressive disorder, recurrent, moderate Deidra, Jenni A 09/03/2016 F F41.0 Panic disorder [episodic paroxysmal anxiety] without agoraphobia Jenni Gay 09/03/2016 F I10 Essential (primary) hypertension Jenni Ochoa 09/03/2016 F F33.1 Major depressive disorder, recurrent, moderate Psy, Batch 10/06/2016 F F31.81 Bipolar II disorder Guerra, Maria Del Rosario 10/06/2016 F E03.9 Hypothyroidism, unspecified Guerra, Maria Del Rosario 10/06/2016 F F33.1 Major depressive disorder, recurrent, moderate Guerra, Maria Del Rosario 10/06/2016 F F41.0 Panic disorder [episodic paroxysmal anxiety] without agoraphobia Guerra, Maria Del Rosario 10/06/2016 F E03.9 Hypothyroidism, unspecified Psy, Batch 10/06/2016 F F33.1 Major depressive disorder, recurrent, moderate Psy, Batch 10/06/2016 F F41.0 Panic disorder [episodic paroxysmal anxiety] without agoraphobia Psy, Batch 10/06/2016 F F31.81 Bipolar II disorder Psy, Batch Procedures Code Description [place] [address] OFFICE/OUTPATIENT VISIT, PAOLO Melgar Jenni Tripp 11/28/2015 01620 OFFICE/OUTPATIENT VISIT, Rosangela Bullocke Tripp 11/28/2015 31821 OFFICE/OUTPATIENT VISIT, Jenni Bullock 12/27/2015 49080 OFFICE/OUTPATIENT VISIT, Jenni Bullock 12/27/2015 H2011 Sandra Hand 02/28/2016 H2011 Sandra Hand 02/28/2016 68008 OFFICE/OUTPATIENT VISIT, Rosangela Bullocke Tripp 03/03/2016 56598 OFFICE/OUTPATIENT VISIT, PAOLO Melgar Jenni A 03/03/2016 H2011 Chevalier, Sandra 03/03/2016 H2011 Chevalier, Sandra 03/03/2016 H0036 Zornes, [place] 10/2015 H0036 Zornes, [place] 10/2015 H0036 Zornes, [place] 06/2016 H0036 Zornes, [place] 06/2016 26500 OFFICE/OUTPATIENT VISIT, PAOLO Cooperromerophillip Melgar, Jenni Almaguer 03/20/2016 06677 OFFICE/OUTPATIENT VISIT, PAOLO Cooperromerophillip Melgar, Jenni Almaguer 03/20/2016 H0036 Zornes, [place] 09/2015 H0036 Zornes, [place] 09/2015 H0036 Zornes, [place] 02/2016 99651 OFFICE/OUTPATIENT VISIT, PAOLO Cooperromerophillip Melgar, Jenni Almaguer 05/19/2016 42984 OFFICE/OUTPATIENT VISIT, PAOLO EsauJavi Melgar Jenni Almaguer 05/19/2016 [id number] OFFICE/OUTPATIENT VISIT, PAOLO EsauJavi Melgar Jenni Almaguer 09/03/2016 99397 OFFICE/OUTPATIENT VISIT, PAOLO Cooperromerophillip Melgar, Jenni Almaguer 09/03/2016 [id number] OFFICE/OUTPATIENT VISIT, PAOLO Cooperromerophillip Melgar Jenni Almaguer 10/06/2016 91215 OFFICE/OUTPATIENT VISIT, Jenni Bullock 10/06/2016 Results Test Result Range CBC W/DIFF - 06/16/15 15:53 EOSINOPHIL # 0.5 k/cumm 0.1-0.5 EOSINOPHIL % 5 % 2-4 GRANULOCYTE # 5.8 k/cumm 2.0-9.0 GRANULOCYTE % 62 % 50-75 LYMPHOCYTE # 2.3 k/cumm 1.0-4.0 LYMPHOCYTE % 25 % 20-30 MEAN CELL HGB 29.8 pg 27.0-33.0 MEAN CELL HGB CONCENTRATION 34.0 g/dL 32.0-37.0 MEAN CELL VOLUME 87.5 fl 80.0-100.0 MONOCYTE # 0.6 k/cumm 0.1-1.0 MONOCYTE % 7 % 4-6 RED BLOOD CELL 4.80 m/cumm 4.00-6.00 RED CELL DISTRIBUTION WIDTH 13.8 % 11.0- 15.6 WHITE BLOOD CELL 9.3 k/cumm 5.0-10.0 HEMOGLOBIN 14.3 gm/dL 12.0-16.0 HEMATOCRIT 42.0 % 37.0-47.0 PLATELET COUNT 368 k/cumm 150-450 D-DIMER QUANT - 06/16/15 15:53 D-DIMER QUANT 198 ng/mL 0-229 METABOLIC PANEL, COMPREHN - 06/16/15 15:53 POTASSIUM 4.1 mmol/L 3.5-5.3 EST GFR (MDRD) > 60 mL/min > 59 ANION GAP 7 mmol/L 5-15 GLUCOSE 115 mg/dL 70-99 CALCIUM 9.3 mg/dL 8.5-10.1 BLOOD UREA NITROGEN 11 mg/dL 7-20 CREATININE 0.7 mg/dL 0.6-1.0 SODIUM 135 mmol/L 135-148 CHLORIDE 102 mmol/L 98-110 AST/SGOT 17 Units/L 10-37 ALT/SGPT 34 Units/L < 66 CARBON DIOXIDE 26 mmol/L 21-32 TOTAL PROTEIN 8.2 gm/dL 6.4-8.2 ALBUMIN 4.2 gm/dL 3.4-5.0 BILI TOTAL 0.3 mg/dL 0.0-1.0 ALKALINE PHOSPHATASE TOTAL 128 IU/L 45- 117 HEMOGLOBIN A1C - 06/16/15 15:53 HEMOGLOBIN A1C 6.0 % < 5.7 LIPID PANEL - 06/16/15 15:53 CHOLESTEROL/HDL RATIO 3.9 < 5.0 LDL CHOLESTEROL 133 mg/dL < 100 VLDL CHOLESTEROL 41 mg/dL < 30 TRIGLYCERIDES 206 mg/dL < 150 CHOLESTEROL 235 mg/dL < 200 HDL CHOLESTEROL 61 mg/dL > 39 THYROID STIM HORMONE (TSH) - 06/16/15 15:53 THYROID STIM HORMONE (TSH) 8.17 uIU/mL 0.34-4.82 TROPONIN I BEDSIDE - 06/16/15 16:04 METHOD Bedside TROPONIN I < 0.04 ng/mL < 0.11 URINALYSIS, ROUTINE - 06/16/15 16:48 UA LEUKOCYTE ESTERASE DIPSTICK TRACE NEGATIVE UA NITRITE DIPSTICK NEGATIVE NEGATIVE UA PROTEIN DIPSTICK NEGATIVE NEGATIVE UA GLUCOSE DIPSTICK NEGATIVE NEGATIVE UA KETONE DIPSTICK NEGATIVE NEGATIVE UA UROBILINOGEN DIPSTICK NORMAL NORMAL UA BILIRUBIN DIPSTICK NEGATIVE NEGATIVE UA BLOOD DIPSTICK TRACE NEGATIVE UA SPECIFIC GRAVITY 1.015 1.015-1.025 UR PH 7.0 5.0-7.0 UA MICROSCOPIC - 06/16/15 16:48 UA BACTERIA 1+ NEGATIVE UA CALCIUM OXALATE CRYSTALS PRESENT NEGATIVE UA EPITHELIAL CELLS 2+ epi/hpf 0 - 1+ UA VOLUME FOR EXAM 12.0 mL (12mL STD) UA WBC 0-1 wbc/hpf 0 - 5 UR TEST - 06/16/15 16:48 UR TEST NEGATIVE NEGATIVE AMYLASE - 06/16/15 23:22 AMYLASE 22 Units/L 25-115 TROPONIN I - 06/16/15 23:22 TROPONIN I < 0.02 ng/mL < 0.07 C REACTIVE PROTEIN - 06/16/15 23:22 C REACTIVE PROTEIN < 0.2 mg/dL 0.00-0.90 METABOLIC PANEL, BASIC - 06/17/15 08:43 POTASSIUM 3.7 mmol/L 3.5-5.3 EST GFR (MDRD) > 60 mL/min > 59 ANION GAP 8 mmol/L 5-15 EST CrCl (CG) > 60 mL/min > 59 GLUCOSE 132 mg/dL 70-99 CALCIUM 8.5 mg/dL 8.5-10.1 BLOOD UREA NITROGEN 13 mg/dL 7-20 CREATININE 0.8 mg/dL 0.6-1.0 SODIUM 138 mmol/L 135-148 CHLORIDE 103 mmol/L 98-110 CARBON DIOXIDE 27 mmol/L -32 METABOLIC PANEL, BASIC - 06/18/15 03:27 POTASSIUM 3.8 mmol/L 3.5-5.3 EST GFR (MDRD) > 60 mL/min > 59 ANION GAP 4 mmol/L 5-15 EST CrCl (CG) > 60 mL/min > 59 GLUCOSE 106 mg/dL 70-99 CALCIUM 8.7 mg/dL 8.5-10.1 BLOOD UREA NITROGEN 13 mg/dL 7-20 CREATININE 0.7 mg/dL 0.6-1.0 SODIUM 139 mmol/L 135-148 CHLORIDE 105 mmol/L 98-110 CARBON DIOXIDE 30 mmol/L -32 T3 FREE - T4 FREE - 06/18/15 03:27 T3 FREE 3.3 pg/mL 2.3-4.2 T4 FREE - THYROID STIM HORMONE (TSH) - 06/18/15 03:27 T4 FREE 0.8 ng/dL 0.8-1.8 TROPONIN I - 06/18/15 12:08 TROPONIN I < 0.02 ng/mL < 0.07 PARATHYROID HORMONE (INTACT) - 06/19/15 03:12 PARATHYROID HORMONE (INTACT) 37 pg/mL - 85 VITAMIN D 25-HYDROXY - 06/19/15 03:12 VITAMIN D 25-HYDROXY 17.7 ng/mL 30.0- 100.0 HELICOBACTER UREASE SCREEN - 06/19/15 14:15 Microbiology UR CALCIUM - 06/19/15 14:32 UR CALCIUM CALCULATED 331 mg/24Hr 42-353 UR CALCIUM NEEL DURATIOM 24 hrs UR CALCIUM LEVEL 15.4 mg/dL UR CALCIUM TOTAL VOLUME 2150 mL UR PHOSPHORUS - 06/19/15 14:32 UR PHOSPHORUS CALCULATED 1.4 gm/24Hr 0.4- 1.3 UR PHOSPHOROUS NEEL DURATIOM 24 hrs UR PHOSPHORUS LEVEL 65.20 mg/dL UR PHOSPHOROUS TOTAL VOLUME 2150 mL URINE CITRATE EXCRETION - 06/19/15 14:32 UR CITRATE CONCENTRATION 258 mg/24 hr 320 -1240 UR CITRATE COLLECTION DURATION 24 hours UR CITRATE 120 mg/L Undefined UR CITRATE TOTAL VOLUME 2150 mL URINE OXALATE - 06/19/15 14:32 UR OXALATE COLLECTION DURATION 24 hours UR OXALATE CONCENTRATION 32 mg/24 hr 4- 31 UR OXALATE 15 mg/L Undefined UR OXALATE TOTAL VOLUME 2150 mL METABOLIC PANEL, BASIC - 06/20/15 04:53 POTASSIUM 3.9 mmol/L 3.5-5.3 EST GFR (MDRD) > 60 mL/min > 59 ANION GAP 6 mmol/L 5-15 EST CrCl (CG) > 60 mL/min > 59 GLUCOSE 111 mg/dL 70-99 CALCIUM 8.4 mg/dL 8.5-10.1 BLOOD UREA NITROGEN 13 mg/dL 7-20 CREATININE 0.7 mg/dL 0.6-1.0 SODIUM 138 mmol/L 135-148 CHLORIDE 103 mmol/L 98-110 CARBON DIOXIDE 29 mmol/L 21-32 PHOSPHORUS - 06/20/15 04:53 PHOSPHORUS 3.4 mg/dL 2.5-4.9 MAGNESIUM - 06/20/15 04:53 MAGNESIUM 1.7 mg/dL 1.8-2.4 VITAMIN D 1,25-DIHYDROXY - 06/20/15 04:53 VITAMIN D 1,25-DIHYDROXY 50.3 pg/mL 19.9- 79.3 VITAMIN B12 - 06/20/15 04:53 VITAMIN B12 573 pg/mL 211-911 UR CREATININE - 06/20/15 20:30 UR CREATININE CALCULATED 1.5 gm/day 0.6- 1.8 UR CREATININE NEEL TIME 24 hrs UR CREATININE TOTAL VOLUME 3120 mL UR CREATININE LEVEL 48.1 mg/dL 44-467 Estimated Average Glucose - 05/20/16 10:42 Estimated Average Glucose 122.6 mg/dL Encounters ACCT No. Visit Date/Time Discharge Status Pt. Type Provider Facility Loc./Unit Complaint [id number] 06/03/2012 19:43:00 2011 21:50:00 DIS Emergency Guilherme MCCABE, Jarrett Stark [facility] [id number] 05/29/2012 14:55:00 2011 16:13:00 DIS Emergency Jarrett DELGADILLO, Colt Marks [facility] TERM [id number] 05/26/2012 09:24:00 2011 10:20:00 DIS Emergency Stephanie DELGADILLO, Marita Juan [facility] [id number] 04/30/2012 17:17:00 2011 18:30:00 DIS Emergency Adolph Goel MD [facility]
[2016-11-02] MEDS ORDERED: IBUP-1547 PO (11:25)
[2016-11-02] MEDS ORDERED: LEVO100T12 PO (11:25)
[2016-11-02] MEDS ORDERED: DULO60CA46 PO (11:25)
[2016-11-02] MEDS ORDERED: CARI3CAP PO (11:25)
[2016-11-02] MEDS ORDERED: ATEN25TA PO (11:25)
--- NOTE | 2016-11-02 11:34 | NUR ---
UA SL CLOUDY
[2016-11-02] MEDS ORDERED: NORMAL SALINE 1,000 ML IV ONE ×2 (11:38→13:45)
--- OUTSIDE RECORDS SUMMARY | 2016-11-02 11:43 | XMS REPORT | Continuity of Care Document ---
Author Author [facility] Organization [facility] Address Unknown Phone Unavailable Care Team Providers Care Fire Extinguisher Inspector Name Role Phone CARLO DONNELLY Primary Care Physician [phone] Insurance Providers Payer Name Policy Number Subscriber Name Relationship [employer] [id number] Yoanna Bautista 18 Self Problems Medical Problems [...] F (96.8 - 99.1) Temperature (Calculated Celsius) 36.81032 degrees C (36.0 - 37.3) Pulse Rate [...] Has specimen been collected/obtained? Y Urine Specific [place] February 23, 2014 7:40pm >=1.030 H - [...] Encounters Encounter Location Date/Time Departed Emergency Room [facility] 02/23/14 5:44pm Recent Diagnosis
[2016-11-02] MEDS ORDERED: KETOROLAC 30mg/ml INJECTION IV ONE (11:45)
[2016-11-02] MEDS ORDERED: ONDANSETRON 4mg/2ml INJECTION IV ONE (11:45)
--- OUTSIDE RECORDS SUMMARY | 2016-11-02 11:45 | XMS REPORT | Continuity of Care Document ---
Author Author [facility] Organization [facility] Address Unknown Phone Unavailable Allergies Active Description [...] F F33.1 Major depressive disorder, recurrent, moderate WillisRochelle 11/28/2015 F F31.81 Bipolar II disorder Rochelle [...] F33.1 Major depressive disorder, recurrent, moderate Zornes, [place] 03/05/2016 F F31.81 B[facility] [place] 03/05/2016 F F41.0 Panic disorder [episodic paroxysmal anxiety] without agoraphobia [facility] [place] 03/06/2016 F F33.1 Major depressive disorder, recurrent, moderate 03/06/2016 F F33.1 Major depressive disorder, recurrent, moderate Rosangela Gaye A 03/06/2016 F F41.0 Panic disorder [episodic paroxysmal anxiety] without agoraphobia Rosangela Gaye A 03/13/2016 F F31.81 Bipolar II disorder 03/13/2016 F F41.0 Panic disorder [episodic paroxysmal anxiety] without agoraphobia 03/13/2016 F F33.1 Major depressive disorder, recurrent, moderate Zornes, [place] 03/13/2016 F F31.81 [facility] 03/13/2016 F F41.0 Panic disorder [episodic paroxysmal anxiety] without agoraphobia [facility], [place] 03/14/2016 F F33.1 Major depressive disorder, recurrent, [...] F33.1 Major depressive disorder, recurrent, moderate Zornes, [place] 04/08/2016 F F31.81 Bipolar II disorder [facility] [place] 04/08/2016 F F41.0 Panic disorder [episodic paroxysmal anxiety] [facility] 04/08/2016 F F33.1 Major depressive disorder, recurrent, moderate 04/09/2016 F F33.1 Major depressive disorder, recurrent, moderate Zornes, Jessica 04/09/2016 F F31.81 Bipolar II disorder Zorvaleriano, [place] 04/09/2016 F F41.0 Panic disorder [episodic paroxysmal [...] Procedures Code Description [place] [address] OFFICE/OUTPATIENT VISIT, PAOLO Melgar Jenni Tripp 11/28/2015 51183 OFFICE/OUTPATIENT VISIT, Rosangela Bullocke Tripp 11/28/2015 36682 OFFICE/OUTPATIENT VISIT, Jenni Bullock 12/27/2015 65864 OFFICE/OUTPATIENT VISIT, Jenni Bullock 12/27/2015 H2011 Sandra Hand 02/28/2016 H2011 Sandra Hand 02/28/2016 36573 OFFICE/OUTPATIENT VISIT, Rosangela Bullocke Tripp 03/03/2016 31113 OFFICE/OUTPATIENT VISIT, PAOLO Melgar Jenni A 03/03/2016 H2011 Chevalier, [place] 03/03/2016 H2011 Chevalier, Sandra 03/03/2016 H0036 Zornes, [place] 10/2015 H0036 Zornes, [place] 10/2015 H0036 Zornes, [place] 06/2016 H0036 Zornes, [place] 06/2016 51447 OFFICE/OUTPATIENT VISIT, PAOLO Cooperromerophillip Melgar, Jenni Almaguer 03/20/2016 02181 OFFICE/OUTPATIENT VISIT, PAOLO Cooperromerophillip Melgar, Jenni Almaguer 03/20/2016 H0036 Zornes, [place] 09/2015 H0036 Zornes, [place] 09/2015 H0036 Zornes, [place] 02/2016 59231 OFFICE/OUTPATIENT VISIT, PAOLO Cooperromerophillip Melgar, Jenni Almaguer 05/19/2016 49199 OFFICE/OUTPATIENT VISIT, PAOLO EsauJavi Melgar Jenni Almaguer 05/19/2016 34645 OFFICE/OUTPATIENT VISIT, PAOLO EsauJavi Melgar Jenni Almaguer 09/03/2016 35455 OFFICE/OUTPATIENT VISIT, PAOLO Cooperromerophillip Melgar, Jenni Almaguer 09/03/2016 31562 OFFICE/OUTPATIENT VISIT, PAOLO Cooperromerophillip Melgar Jenni Almaguer 10/06/2016 21707 OFFICE/OUTPATIENT VISIT, Jenni Bullock 10/06/2016 Results Test [...] Status Pt. Type Provider Facility Loc./Unit Complaint [id number] 06/03/2012 19:43:00 2011 21:50:00 DIS Emergency Guilherme MCCABE, Jarrett Stark [facility] [id number] 05/29/2012 14:55:00 2011 16:13:00 DIS Emergency Jarrett DELGADILLO, Colt Marks [facility] TERM [id number] 05/26/2012 09:24:00 2011 10:20:00 DIS Emergency Stephanie DELGADILLO, Marita Juan [facility] [id number] 04/30/2012 17:17:00 2011 18:30:00 DIS Emergency Adolph Goel MD [facility]
[2016-11-02 11:46] LABS: BLOOD, URINE 3+ (NEGATIVE); COLOR,URINE YELLOW (YELLOW); LEUKOCYTE ESTERASE ,URINE 1+ (NEGATIVE); NITRITE,URINE NEGATIVE (NEGATIVE); UROBILINOGEN,URINE 0.2 EU/DL (NORMAL)
[2016-11-02 11:58] LABS: BACTERIA,URINE 1+ (NEGATIVE); RBC,URINE 20-30 /HPF (0-3)
[2016-11-02 12:04] LABS: BASOPHILS # (AUTO) 0.1 T/MM3 (0-0.2); BASOPHILS % (AUTO) 0.8 % (0-2); EOSINOPHILS # (AUTO) 0.7 T/MM3 (0-0.5); EOSINOPHILS % (AUTO) 7.1 % (0-4); HCT - HEMATOCRIT 38.7 % (36-46); IMMATURE GRANULOCYTE # (AUTO) 0.06 T/MM3 (0.00-0.03); IMMATURE GRANULOCYTE % (AUTO) 0.6 % (0.0-0.5); LYMPHOCYTES # (AUTO) 3.6 T/MM3 (1-4.8); LYMPHOCYTES % (AUTO) 36.9 % (23-45); MEAN CORPUSCULAR HGB 29.9 UUG (26-34); MEAN CORPUSCULAR HGB CONC(MCHC 33.6 GM/DL (31-37); MEAN PLATELET VOLUME 10.1 UM3 (9.4-12.4); MONOCYTES # (AUTO) 0.5 T/MM3 (0-0.8); MONOCYTES % (AUTO) 5.4 % (0-9.0); NEUTROPHILS #(AUTO)-ABSOLUTE 4.9 T/MM3 (1.8-7.7); NEUTROPHILS % (AUTO) 49.2 % (33-66); RED BLOOD COUNT 4.35 M/MM3 (4.00-5.20); WBC - WHITE BLOOD COUNT 9.9 T/MM3 (4.5-11.0)
[2016-11-02 12:15] LABS: ANION GAP 10 MEQ/L (5-15); BUN/CREATININE RATIO 28 RATIO (6-26); CALCIUM 9.6 MG/DL (8.4-10.2); CHLORIDE 109 MEQ/L (98-107); CO2 - CARBON DIOXIDE 24 MEQ/L (22-30); CREATININE 0.5 MG/DL (0.7-1.2); GLOMERULAR FILTRATION RATE 140; GLUCOSE 113 MG/DL (65-110); POTASSIUM 4.3 MEQ/L (3.6-5); SODIUM 143 MEQ/L (134-144)
--- NOTE | 2016-11-02 12:31 | NUR ---
TO CT PER CART
--- NOTE | 2016-11-02 12:47 | NUR ---
RETURNED FROM CT
--- NOTE | 2016-11-02 12:49 | NUR ---
PAIN & NAUSEA SLIGHTLY IMPROVED. PT IS TEXTING ON CELLPHONE
--- NOTE | 2016-11-02 12:55 | NUR ---
REPORT TO NAVNEET EVANS
[2016-11-02] MEDS ORDERED: HYDROMORPHONE 2mg/ml INJECTION IV ONE (13:45)
--- NOTE | 2016-11-02 13:53 | NUR ---
DR RAMEY IN ROOM
--- NOTE | 2016-11-02 14:23 | DI ---
Indication: ITS.REASON: renal colic, hx medullary sponge kidney PROCEDURE: CT RENAL W/O CONTRAST: Encounter: Initial Comparison: None Technique: Axial CT images were performed through the abdomen and pelvis without intravenous contrast. Coronal and sagittal two-dimensional reformats. Automated Exposure Control and Iterative Reconstruction dose reducing techniques were utilized. Findings: The lung bases are clear. The unenhanced contours of the liver is unremarkable. The gallbladder, spleen, pancreas and adrenal glands are normal. Bilateral renal stones without evidence of obstruction. No ureteral stone identified. The largest stone in the lower pole of the right kidney measures 6 mm in size. Largest stone in the lower pole of the left kidney measures 6 mm in size. There is slight increased density of the medullary pyramids compatible with the provided history of medullary sponge kidney. Bladder is normal. Uterus and ovaries are normal for age. Trace free pelvic fluid, compatible with physiologic fluid in a patient of this age. No evidence of a bowel obstruction. Bone windows are unremarkable. The appendix is normal. Impression: Bilateral nephrolithiasis without acute obstructing stone. There is a preliminary report by [facility]. .
[2016-11-02] MEDS ORDERED: PIPERACILLIN/TAZOBACTAM 3.375 G in NORMAL SALINE 100 ML IV SCH (15:00)
--- NOTE | 2016-11-02 15:55 | ERPDOC ---
Departure Disposition Decision Date: Nov 02, 2016 Disposition Decision Time: 15:30 Disposition: 01 DISCHARGED HOME, SELF-CARE Impression Impression Impression: Primary Impression: Abdominal pain Abdominal location: upper abdomen, unspecified Qualified Codes: R10.10 - Upper abdominal pain, unspecified Additional Impressions: Recent urinary tract infection Free fluid in pelvis Severity: Moderate Condition: Stable Seen By: Physician only Referrals: (Family) Patient Instructions: Acute Abdominal Pain (ED) Problems/Meds/Labs Reviewed?: Yes Medications reviewed and manag: Yes Additional Instructions: Home to rest. Continue to push fluids. Take Augmentin as prescribed. PAin medication and nausea medication as needed.Follow up with your doctor later this week or earlier if not improving. Follow up care ordered?: Yes Mental Status: Alert, Oriented Scripts Oxycodone HCl/Acetaminophen (Oxycodon-Acetaminophen 7.5-325) 7.5-325 Tablet 1-2 TAB PO Q6H Y for PAIN, #20 TAB 0 Refills Take 1-2 tablets, by mouth, every 4 hours for Pain Prov: EDEN RAMEY MD 11/02/16 Ondansetron (Ondansetron Odt) 4 Mg Tab.rapdis 4 MG PO Q6HR Y for NAUSEA, #15 TAB 0 Refills Prov: EDEN RAMEY MD 11/02/16 Amox Tr/Potassium Clavulanate (Amox Tr-K Clv 875-125 mg Tab) 875 Mg Tablet 1 TAB PO BID for 10 Days, 0 Refills Prov: EDEN RAMEY MD 11/02/16 HPI - Abdominal Pain General Chief Complaint: Abdominal Pain Stated Complaint: ABD PAIN Time Seen by Provider: 11:38 Source: patient, RN notes reviewed, old records History/Exam Limitations: no limitations HPI - Abdominal Pain Initial Comments This patient presents complaining of sudden increase in abdominal pain. She had a UTI last week and was on antibiotics. However today she suddenly got pain that was in the pelvic area and shot up into the right upper quadrant/ flank. It feels different than kidney stones that she has had in the past. She is out of the Lortab that she has had as well as the Keflex for the UTI. She had talked to her doctor's office on Thursday and they were going to call out some MacroBID in case the UTI was only partially treated, but she checked iwth the pharmacy and they didn't have an order for the MacroBID. She has an appointment with her doctor for tomorrow but didn't feel that she could wait that long. No gross hematuria, no fever. Occurred At: home Onset: Rapid Pain Scale: Now: 8/10 Quality: sharpness Location: right flank, suprapubic Radiation: flank Activities at Onset: none Modifying Factors: IMPROVES WITH: analgesics, WORSE WITH: palpation Associated Symptoms: back pain, nausea/vomiting Hx of Similar Symptoms: Yes Allergies: Coded Allergies: ciprofloxacin (Verified Allergy, Unknown, 02/23/14) Uncoded Allergies: SULFA (Allergy, Unknown, 02/23/14) Past History Past Medical History Metabolic: hypertension, hypothyroidism Female: kidney stones Psychological: depression Surgical History General: other, tonsils Reproductive/: tubal ligation Social History Smoking Status: Unknown if ever smoked Substance Use Type: does not use Record Review Pertinent history updated: Yes Review of Systems Constitutional Constitutional: appetite decrease, DENIES: chills, dizziness, fever, weakness Eyes General: DENIES: pain Lids/Accessories: DENIES: erythema Vision: DENIES: blurring ENMT Ears: DENIES: pain Hearing: DENIES: hearing loss Balance: DENIES: vertigo Sinuses: DENIES: congestion, rhinorrhea Mouth/Throat: DENIES: sore throat Teeth: DENIES: pain Cardiovascular Cardiac: DENIES: chest pain Rhythm/Rate: DENIES: palpitations Vascular: DENIES: pedal edema, unilateral swelling Pulmonary Respiratory: DENIES: cough, dyspnea, sputum GI Upper Abdomen: nausea, pain (right flank), see HPI, DENIES: vomiting General: see HPI, DENIES: burning, discharge, dysuria, frequency Female: DENIES: burning, itching, vaginal discharge Musculoskeletal General: DENIES: joint pain, pain Integumentary Skin: DENIES: itching, rash Neurological General: DENIES: headache, memory disturbances, seizures, syncope Psychiatric Psychiatric: DENIES: anxiety, depression Endocrine Endocrine: DENIES: heat/cold intolerance Hematologic/Lymphatic Hematologic/Lymphatic: DENIES: anemia, easy bruising Allergic/Immunological Allergic/Immunoligical: DENIES: hives All other Systems All Other Systems: Reviewed and Negative Physical Exam General General Nourishment: well nourished, well developed, appears stated age, no acute distress, adult General Body Habitus: well groomed Vitals and Pain First Documented Vital Signs Date Time Temp Pulse Resp B/P Pulse Ox O2 Delivery O2 Flow Rate FiO2 11/02/16 11:10 98.5 97 17 144/77 100 Room Air Weight: Kilograms: 120.000 Height (feet): 5 Height (inches): 9.00 Triage Pain Scale: RN VS reviewed by Provider: Yes Normal Exams: Head: Normocephalic w/o trauma Eyes: Pupils are PERRLA w/ EOMI, No scleral icterus, irritation, or foreign bodies noted ENMT: No facial trauma, nasal exudates, pharyngeal erythema, or exudates are noted Dental: No fractured, loose, or missing teeth noted Neck: Full range of motion, without adenopathy, JVD, bruits or thyromegaly Chest/Resp: Clear all hartley, with good airflow, and symmetry bilaterally CV: Regular rate and rhythm, without murmur or gallop, Pulses 2+ all extremities, capillary refill, <2 seconds all ext., no pedal edema noted Lymphatic: No lymphadenopathy, or lymphedema noted Musculoskeletal: No tenderness, or deformity noted, good range of motion, all extremities Integumentary: No rashes, hives, or bruising noted, hair and nails, without abnormality Neurologic: Patient is alert, and oriented, cranial nerves, motor/sensory/ cerebellar, exams w/o gross deficits, to observation Psychiatric: Patient exhibits, appropriate attention, emotion and affect Abdomen (brief) Abdominal Brief: FOUND: bowel normo active x4, soft, tender, NOT FOUND: distended, hepatosplenomegaly Comments tender to right flank region with moderate voluntary guarding Differential Diagnoses Considering: Renal Colic, UTI Progress Results/Orders Orders Lab Results Medications Current ED Medications Sodium Chloride (Normal Saline IV) 1,000 ml @ 0 mls/hr Q0M ONCE IV Last administered on 11/02/16 12:08; Start 11/02/16 at 11:38; Stop 11/02/16 at 11:41; Status DC Ondansetron HCl (Zofran) 4 mg O ONCE IV Last administered on 11/02/16 12:08; Start 11/02/16 at 11:45; Stop 11/02/16 at 11:46; Status DC Ketorolac Tromethamine (Toradol) 30 mg O ONCE IV Last administered on 12:11; Start 11/02/16 at 11:45; Stop 11/02/16 at 11:46; Status DC Hydromorphone HCl 1 mg 1 mg O ONCE IV Last administered on 11/02/16 13:47; Start 11/02/16 at 13:45; Stop 11/02/16 at 13:46; Status DC Sodium Chloride 1,000 ml @ 0 mls/hr Q0M ONCE IV Last administered on 11/02/16 13:44; Start 11/02/16 at 13:45; Stop 11/02/16 at 13:46; Status DC Piperacillin Sod/ Tazobactam Sod/ Sodium Chloride (Zosyn/NS) 100 ml @ 200 mls/ hr Q6HR IV Last administered on 11/02/16 14:48; Start 11/02/16 at 15:00; Stop at 16:16; Status DC Progress Progress Patient was initially given Toradol with minimal improvement in pain. Urine shows 1+ LE and some WBCs and RBCs. CT shows stones -- but they are up in the kidneys and not obstructing, min free fluid in pelvis. Dilaudid given with good results. Will change antibiotic to Augmentin since she is allergic to Sulfa and fluoroquinolones. One dose Zosyn given IV here. Additional pain medication given. Patient to keep appt with PCP tomorrow as scheduled. CT Date CT Interpreted for Anna: Nov 02, 2016 CT : CT: Renal no contrast Interpretation: Abnormal (stones bilateral kidneys, none in ureters. Small amt free fluid in pelvis) EDEN RAMEY MD Nov 02, 2016 15:55 Urine Test Negative Turbidity < 20 Sodium Level 143MEQ/L Potassium Level 4.3MEQ/L Chloride Level 109MEQ/L Carbon Dioxide Level 24MEQ/L Anion Gap 10MEQ/L Blood Urea Nitrogen 14.0MG/DL Creatinine 0.5MG/DL Glomerular Filtration Rate Calc 140 BUN/Creatinine Ratio 28RATIO Glucose Level 113MG/DL Calculated Osmolality 277MOSM/KG Calcium Level 9.6MG/DL Icterus Index < 2 Chemistry Specimen Hemolysis 17 Medications Current ED Medications Sodium Chloride (Normal Saline IV) 1,000 ml @ 0 mls/hr Q0M ONCE IV Last administered on 11/02/16 12:08; Start 11/02/16 at 11:38; Stop 11/02/16 at 11:41; Status DC Ondansetron HCl (Zofran) 4 mg O ONCE IV Last administered on 11/02/16 12:08; Start 11/02/16 at 11:45; Stop 11/02/16 at 11:46; Status DC Ketorolac Tromethamine (Toradol) 30 mg O ONCE IV Last administered on 12:11; Start 11/02/16 at 11:45; Stop 11/02/16 at 11:46; Status DC Hydromorphone HCl 1 mg 1 mg O ONCE IV Last administered on 11/02/16 13:47; Start 11/02/16 at 13:45; Stop 11/02/16 at 13:46; Status DC Sodium Chloride 1,000 ml @ 0 mls/hr Q0M ONCE IV Last administered on 11/02/16 13:44; Start 11/02/16 at 13:45; Stop 11/02/16 at 13:46; Status DC Piperacillin Sod/ Tazobactam Sod/ Sodium Chloride (Zosyn/NS) 100 ml @ 200 mls/ hr Q6HR IV Last administered on 11/02/16 14:48; Start 11/02/16 at 15:00 EDEN RAMEY MD Nov 02, 2016 15:55
[2016-11-02] MEDS ORDERED: OXYC-532 PO (15:57)
[2016-11-02] MEDS ORDERED: ONDA4TAB10 PO (15:57)
[2016-11-02] MEDS ORDERED: AMOX1TAB16 PO (15:57)
[2016-11-02 16:10] VITALS: BP 140/85; PULSE 96; RESP 18; TEMP 98.4; O2SAT 97
== END 2016-11-02 16:10 | disposition home or self-care (01) ==
LOC: ED 11:07
DX: R10.2 Pelvic and perineal pain (principal); R10.11 Right upper quadrant pain; N39.0 Urinary tract infection, site not specified; R18.8 Other ascites
CPT/HCPCS: 80048; 81001; 81025; 85025